=== PATIENT | female | born 1990 | race Caucasian/White ===

== ENCOUNTER → 2021-09-02 | Outpatient (CLI) | payer BC ==
[~2021-09-02] MED LIST: CLARITIN10 M2 PO; GLUCOPHAGE 500500 MG PO; HYDROCHLOROTHIA25 MG PO; NORCO 5-325 TA1 EACH PO; SYNTHROID25 MCG PO; SYNTHROID75 MCG PO
== END ==
LOC: MRI 13:40
DX: H47.20 Unspecified optic atrophy (principal)
CPT/HCPCS: 70543; 70553; A9577

== ENCOUNTER 2021-10-09 17:53 | Emergency (ER) | payer BC ==
[2021-10-09 19:58] LABS: HEMOGLOBIN 14.6 gm/dl (12.3-15.3); RED BLOOD COUNT 4.98 M/UL (4.00-5.10); WHITE BLOOD COUNT 8.7 K/UL (4.5-11.0)
[2021-10-09 20:20] LABS: BUN/CREATININE RATIO 10 (0-10)
== END 2021-10-09 22:20 | disposition home or self-care (01) ==
LOC: ER1 17:53
PROVIDERS: Student in an Organized Health Care Education/Training Program
DX: M25.462 Effusion, left knee (principal); E78.5 Hyperlipidemia, unspecified
CPT/HCPCS: 80048; 85025; 85610; 85730; 96372; 99284; J1650; Q9967

== ENCOUNTER → 2021-10-09 | Outpatient (CLI) | payer BC | LOC: LAB 07:20 | DX: M25.562 Pain in left knee (principal); M25.462 Effusion, left knee; E03.9 Hypothyroidism, unspecified; E78.2 Mixed hyperlipidemia | CPT/HCPCS: 36415; 73562; 80061; 84439; 84443; 85379 ==

== ENCOUNTER → 2021-10-10 | Outpatient (CLI) | payer BC | LOC: US 07:56 | DX: M79.89 Other specified soft tissue disorders (principal) | CPT/HCPCS: 93971 ==

== ENCOUNTER → 2021-11-26 | Outpatient (CLI) | payer BC | LOC: EXRD 07:40 | DX: I10 Essential (primary) hypertension (principal) | CPT/HCPCS: 93975 ==

== ENCOUNTER → 2021-12-03 | Outpatient (CLI) | payer BC | LOC: KOH-I 09:31 | DX: S83.242A Other tear of medial meniscus, current injury, left knee, initial encounter (principal); S83.002A Unspecified subluxation of left patella, initial encounter | CPT/HCPCS: 73721 ==